=== PATIENT | female | born 1955 | race Caucasian/White ===

== ENCOUNTER 2022-05-02 11:26 | Day surgery (SDC) | payer MEDICARE ==
[~2022-05-02] VITALS: Ht 170.2 cm; Wt 78.6 kg
[2022-05-02 11:43] VITALS: BP 128/103
[2022-05-02] MEDS ORDERED: fentaNYL/PF 50MCG/1 ML 2ML syringe ONE (11:43)
[2022-05-02] MEDS ORDERED: MIDAZolam 1 MG/ML 5ML VIAL ONE (11:43)
[2022-05-02] MEDS ORDERED: LIDOcaine Viscous 15ml cup ONE (11:44)
[2022-05-02] MEDS ORDERED: ESCI20TA36 PO (11:51)
[2022-05-02] MEDS ORDERED: BUPR100T13 PO (11:51)
[2022-05-02] MEDS ORDERED: SIMV40TA PO (11:52)
[2022-05-02] MEDS ORDERED: PANT-47 PO (11:53)
[2022-05-02] MEDS ORDERED: OLME40TA70 PO (11:53)
[2022-05-02] MEDS ORDERED: VALA500T41 PO (11:54)
[2022-05-02] MEDS ORDERED: DIAZ10TA66 PO (11:55)
[2022-05-02] MEDS ORDERED: HYOS-13 PO (11:56)
[2022-05-02] MEDS ORDERED: HYDR-3965 PO (11:56)
[2022-05-02] MEDS ORDERED: ASPI-803 (11:57)
[2022-05-02] MEDS ORDERED: MULT-1085 PO (11:58)
[2022-05-02] MEDS ORDERED: LACT1CAP75 PO (11:59)
[2022-05-02] MEDS ORDERED: BENF150C (11:59)
[2022-05-02] MEDS ORDERED: [UNRECOGNIZED DRUG - CODE] (12:00)
[2022-05-02 13:28] VITALS: BP 135/90
[2022-05-02 13:38] VITALS: BP 134/75
[2022-05-02 13:48] VITALS: BP 126/75
[2022-05-02 13:54] VITALS: BP 125/58
== END 2022-05-03 14:10 | disposition home or self-care (01) ==
LOC: GI LAB 11:26
PROVIDERS: ATTEND Specialist
DX: K57.30 Diverticulosis of large intestine without perforation or abscess without bleeding (principal); K63.89 Other specified diseases of intestine; K44.9 Diaphragmatic hernia without obstruction or gangrene; K29.70 Gastritis, unspecified, without bleeding; K29.80 Duodenitis without bleeding; K22.2 Esophageal obstruction
CPT/HCPCS: 43239; 43450; 45378; 99153; G0500; J2250; J3010; J7030; Z7512; 88305; 99152; A4620

== ENCOUNTER 2022-10-13 10:35 | Outpatient (CLI) | payer MEDICARE ==
[~2022-10-13 10:35] MED LIST: ASPI-803; BENF150C; BUPR100T13 PO; DIAZ10TA66 PO; ESCI20TA36 PO; HYDR-3965 PO; HYOS-13 PO; LACT1CAP75 PO; MULT-1085 PO; OLME40TA70 PO; PANT-47 PO; SIMV40TA PO; VALA500T41 PO; [UNRECOGNIZED DRUG - CODE]
[2022-10-13] MEDS ORDERED: BARIUM SULFATE 340 ML SUSP.RECON***PROCEDURE AREA ONLY**DONT ENTER PO ONE (11:00)
== END 2022-10-13 23:59 | disposition home or self-care (01) ==
LOC: RAD 10:35
PROVIDERS: ATTEND Surgery
DX: K44.9 Diaphragmatic hernia without obstruction or gangrene (principal); K22.4 Dyskinesia of esophagus; K22.89 Other specified disease of esophagus
CPT/HCPCS: 74220